=== PATIENT | male | born 1980 | race Caucasian/White ===

== ENCOUNTER 2016-05-21 05:50 | Emergency (ER) | payer SELFPAY ==
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
== END 2016-05-21 06:40 | disposition left against medical advice (07) ==
LOC: JD.ED 05:50
DX: S09.90XA Unspecified injury of head, initial encounter (principal); F10.129 Alcohol abuse with intoxication, unspecified; W18.40XA Slipping, tripping and stumbling without falling, unspecified, initial encounter; Z53.21 Procedure and treatment not carried out due to patient leaving prior to being seen by health care provider